=== PATIENT | male | born 1955 | race Caucasian/White ===

== ENCOUNTER 2016-12-09 16:36 | Emergency (ER) | payer BC ==
[~2016-12-09] VITALS: Ht 162.6 cm; Wt 81.8 kg
[~2016-12-09 16:36] MED LIST: MOBIC7.5 MG PO; OSTEO BI-FLEX1 EAC1 PO; ZOFRAN ODT8 MG PO
[2016-12-09 18:40] VITALS: BP 157/83
== END 2016-12-09 18:42 | disposition home or self-care (01) ==
LOC: EME 16:36
DX: S61.211A Laceration without foreign body of left index finger without damage to nail, initial encounter (principal); Z23 Encounter for immunization; W26.8XXA Contact with other sharp object(s), not elsewhere classified, initial encounter
CPT/HCPCS: 99281; 99284